=== PATIENT | female | born 1990 | race African-American/Black ===

== ENCOUNTER 2020-10-23 04:00 | Emergency (ER) | payer OTHER ==
[~2020-10-23] VITALS: Ht 162.6 cm; Wt 86.2 kg
--- NOTE | 2020-10-23 04:00 | NUR ---
Patient to ER bed 7 to gown for evaluation. Side rails up.
[2020-10-23 04:20] VITALS: BP_SYST 126
--- NOTE | 2020-10-23 04:20 | NUR ---
PT BIB [facility] TO ED SEEKING MEDICAL CLEARANCE. VSS NO S/S OF ACUTE DISTRESS RESTING ON GURNEY. NO OTHER COMPLAINTS NOTED
--- NOTE | 2020-10-23 04:55 | NUR ---
DR. ALVARADO BEDSIDE FOR PT EVAL
--- NOTE | 2020-10-23 05:36 | NUR ---
Patient given written and verbal discharge instructions and verbalizes understanding. ER MD discussed with patient the results and treatment provided. Patient in stable condition. ID arm band removed. Patient educated on pain management and to follow up with PMD. Pain Scale 0. Opportunity for questions provided and answered. Medication side effect fact sheet provided. Patient medically cleared, ok to book
== END 2020-10-23 05:36 ==
LOC: SED 04:00
DX: Z02.89 Encounter for other administrative examinations (principal)
CPT/HCPCS: 99283